=== PATIENT | male | born 1995 | race Caucasian/White ===

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

== ENCOUNTER 2018-04-04 12:44 | Emergency (ER) | payer BC ==
--- NOTE | 2018-04-04 13:24 | EDPHY ---
H & P Stated Complaint: MCCRARY/nausea since waking up this morning Time Seen by Provider: 04/04/18 13:22 - Personal History Current Tetanus/Diphtheria Vaccine: Yes Current Tetanus Diphtheria and Acellular Pertussis (TDAP): Yes Tetanus Vaccine Date: < 10 years - Medical/Surgical History Hx Asthma: No Hx Chronic Respiratory Disease: No Hx Diabetes: No Hx Cardiac Disease: No Hx Renal Disease: No Hx Cirrhosis: No Hx Alcoholism: No Hx HIV/AIDS: No Hx Splenectomy or Spleen Trauma: No Other PMH: siezure - Social History Smoking Status: Never smoked Constitutional: Initial Vital Signs Temperature (C) 36.6 C 04/04/18 12:46 Heart Rate 76 04/04/18 12:46 Respiratory Rate 18 04/04/18 12:46 Blood Pressure 104/65 04/04/18 12:46 O2 Sat (%) 97 04/04/18 12:46 O2 Delivery Mode Room Air Allergies/Adverse Reactions: No Known Allergies Allergy (Verified 04/04/18 12:46) Home Medications: Medication Instructions Recorded levETIRAcetam [Keppra 500 mg (*)] 500 mg PO BID #60 tab 04/04/18 Medical Decision Making - Diagnostics Imaging Results: Imaging Impressions Head CT 04/04/18 13:28 Impression: 1. No acute intracranial abnormality seen. 2. Heterotopic sanchez matter once again identified along the margins of the occipital horn right lateral ventricle. This could represent nidus for seizure activity. 3. Nonspecific left maxillary sinus disease. If symptoms worsen, additional imaging may be necessary. Findings discussed with Sacha Field MD at 13:54 hour, 04/04/2018. Thoracic Spine X-Ray 04/04/18 13:28 Impression: Nothing acute by radiograph. Imaging: Discussed imaging studies w/ score caller Radiologist, I viewed and interpreted images myself ED Course/Re-evaluation: CHIEF COMPLAINT: Headache, nausea, amnesia HISTORY OF PRESENT ILLNESS: The patient is a 22 y/o male with a history of one seizure due to an unknown cause complaining of a headache and nausea this morning. Last night the patient stayed home with his rooms and smoked some marijuana. He does not believe he drank any alcohol. The last thing the patient remembers is playing video games around 22:00, 15 hours ago. This morning his roommates heard a loud bang from the bathroom and thought that the patient lost consciousness. The patient does not remember losing consciousness. However, he is now having a frontal headache , is nauseous, and has upper back pain. He cannot remember the events prior to passing out or the events shortly after passing out. No chest pain, shortness of breath, abdominal pain, urinary or bowel complaints, numbness, paresthesias, fever. REVIEW OF SYSTEMS: A comprehensive 10 system review of systems is otherwise negative aside from elements mentioned in the history of present illness and medical decision making. PHYSICAL EXAM: HR, BP, O2 Sat, RR. Temp noted General Appearance: Alert, well hydrated, and non-toxic appearing. Head: Atraumatic without scalp tenderness or obvious injury Eyes: Pupils dilated, equal, round, reactive to light and accommodation, EOMI, no trauma, no injection. Ears: Clear bilaterally, no perforation, normal landmarks Nose: Atraumatic, no rhinorrhea, clear. Throat: There is no erythema or exudates, no lesions, normal tonsils, mucus membranes moist. Neck: Supple, 2+ carotid upstroke, nontender, no lymphadenopathy. Respiratory: No retractions, no distress, no wheezes, and no accessory muscle use. Lungs are clear to auscultation bilaterally. Cardiovascular: Regular rate and rhythm, no murmurs, rubs, or gallops. Bilateral carotid, radial, dorsalis pedis, and posterior tibial pulses intact. Good capillary refill all extremities. Gastrointestinal: Abdomen is soft, nontender, non-distended, no masses, no rebound, no guarding, no peritoneal signs. Back: Mid-thoracic tenderness to palpation between the scapula. Musculoskeletal: Normal active ROM of all extremities, atraumatic. Neurological: Retrograde and anterograde amnesia, post-ictal. The patient has normal DTRs and non-focal cranial nerves, motor, sensory, and cerebellar exam. Skin: No rashes, good turgor, no nodules on palpation. Past medical history: Seizure (2 years ago) Past surgical history: Denies Family history: Denies Social history: Student at , single, lives in [place] DIAGNOSTICS/PROCEDURES/CRITICAL CARE TIME: Head CT: Heterotropic brain tissue, could represent nidus for seizure activity Thoracic Spine x-ray: No acute findings DIFFERENTIAL DIAGNOSIS: The differential diagnosis for the patient's altered mental status included but was not limited to seizure, hypoglycemia, infectious process, electrolyte abnormality, head injury, neurologic process, anemia, cardiac process, and intoxicants. MEDICAL DECISION MAKING: The patient is a 22 y/o male with a history of one seizure due to an unknown cause presenting with a frontal headache and nausea this morning. On exam he has retro and anterograde amnesia; he is unable to remember around 12 hours from 22:00 last night to 10:00 this morning. On exam, he appears post-ictal and has dilated pupils. He also has mid-thoracic pain between the scapula. As the patient is amnestic, I will try and talk to his friends to see if he had a syncopal episode or a seizure this morning. Head CT, thoracic spine x-ray, and labs ordered; 4mg PO Zofran administered. 1355: I spoke with the patient's friends and roommates who state that the patient did not drink any alcohol last night They state he did smoke a small amount of marijuana last night, but he did not take any other illicit substances. They admit to hearing the strange noise from the bathroom this morning, but did not go into check on him as they did not want invade his privacy. They thought he might have had a syncopal episode or a seizure as he has a history of one seizure without a diagnosis. 1356: I spoke with Dr. Posada, radiologist, who reports that the patient has heterotropic brain tissue, which could represent nidus for seizure activity. This patient most likely had a seizure this morning, which was probably de to the heterotropic brain tissue. I will consult with neurology as this patient has now had a second seizure with a known cause. 1405: I consulted with Dr. Beebe, neurologist, regarding patient's symptoms and imaging findings. This patient will need to followup with Dr. Beebe as an outpatient. I have prescribed him Keppra; his first dose will be given prior to discharge. 1434: I reviewed patient's thoracic spine x-ray, which reveals no acute osseous injury. The patient's pain is consistent with a thoracic spine contusion. 1440: Reassessed patient and discussed head CT findings. He is comfortable with plan for neurology follow up and taking Keppra. He states that he was prescribe anti-seizure medications in the past, but stopped taking these as he didn't like how they made him feel. Return precautions provided; patient is comfortable with this plan. - Data Points Medications Given: Discontinued Medications Levetiracetam (Keppra) 500 mg PO EDNOW ONE Stop: 04/04/18 14:07 Last Admin: 04/04/18 14:28 Dose: 500 mg Ondansetron HCl (Zofran Odt) 4 mg PO EDNOW ONE Stop: 04/04/18 13:31 Last Admin: 04/04/18 13:32 Dose: 4 mg Departure - Departure Disposition: Home, Routine, Self-Care Clinical Impression: Seizure Back contusion Qualifiers: Encounter type: initial encounter Laterality: right Qualified Code(s): S20.221A - Contusion of right back wall of thorax, initial encounter Condition: Good Instructions: Epilepsy (ED), Contusion in Adults (ED), New-Onset Seizure in Adults (ED), Back Pain (ED) Additional Instructions: 1. Follow up with a neurologist, you have been referred to Dr. Beebe. 2. Take Keppra as prescribed. 3. Do not operate heavy machinery, this includes driving. 4. Return to the emergency department immediately for seizure, headache, numbness, weakness, neck pain, inability to tolerate fluids by mouth or other worsening of condition. Referrals: Samuel Beebe DO [Medical Doctor] - As per Instructions Prescriptions: levETIRAcetam [Keppra 500 mg (*)] 500 mg PO BID #60 tab Report Scribed for: Sacha Field Report Scribed by: Kay Ann Date of Report: 04/04/18 Time of Report: 13:25
[2018-04-04] MEDS ORDERED: ONDANSETRON DISINTEGRATING 4 MG TAB PO ONE (13:30)
[2018-04-04] MEDS ORDERED: levETIRAcetam 500 MG TAB PO ONE (14:06)
[2018-04-04 14:43] VITALS: BP 106/71
== END 2018-04-04 14:44 | disposition home or self-care (01) ==
DX: R11.0 Nausea (principal); R56.9 Unspecified convulsions; S20.221A Contusion of right back wall of thorax, initial encounter